=== PATIENT | female | born 1960 | race Two or more races ===

== ENCOUNTER → 2021-10-23 | Day surgery (SDC) | payer OTHER | END | disposition home or self-care (01) | LOC: JMAMMO-SUR 11:18 | PROVIDERS: ATTEND Internal Medicine Pulmonary Disease | PROC: 0H9U3ZX Drainage of Left Breast, Percutaneous Approach, Diagnostic (ICD-10-PCS; principal; 2021-10-23) | DX: D24.2 Benign neoplasm of left breast (principal); N60.92 Unspecified benign mammary dysplasia of left breast | CPT/HCPCS: 19083; 77065-TC; 88305-TC; 88341-TC; 88342-TC ==

== ENCOUNTER 2022-02-18 05:14 | Day surgery (SDC) | payer OTHER ==
[2022-02-14 11:26] VITALS: BMI 36.5
[2022-02-18] MEDS ORDERED: MIDAZOLAM HCL 2 MG/2 ML SINGLE DOSE VIAL ONE (09:14)
[2022-02-18] MEDS ORDERED: PROPOFOL 20 ML ONE (09:15)
[2022-02-18] MEDS ORDERED: LIDOCAINE HCL/PF 2% SDV 5ML VIAL ONE (09:15)
[2022-02-18] MEDS ORDERED: LIDOCAINE HCL 1%, 10 MG/ML (20ML VIAL) ONE (10:50)
[2022-02-18] MEDS ORDERED: LIDOCAINE HCL 1%, 10 MG/ML (20ML VIAL) NR ONE (11:25)
[2022-02-18] MEDS ORDERED: ceFAZolin SODIUM 1 GM VIAL ONE (11:34)
[2022-02-18] MEDS ORDERED: ceFAZolin SODIUM 1 GM VIAL IVPB ONE (11:35)
[2022-02-18] MEDS ORDERED: oxyCODONE HCL 5 MG TABLET PO PRN ×2 (12:01)
[2022-02-18] MEDS ORDERED: ONDANSETRON 4 MG/2 ML VIAL IVPUSH PRN (12:01)
[2022-02-18] MEDS ORDERED: LACTATED RINGERS SOLUTION 1,000 ML IV SCH (12:15)
[2022-02-18 13:38] VITALS: RESP 20
[2022-02-18 14:39] VITALS: BP 120/70; PULSE 68; TEMP 98
== END 2022-02-18 14:20 | disposition home or self-care (01) ==
LOC: JASU-SURG 05:14
PROVIDERS: ATTEND Surgery
PROC: 0HBU0ZZ Excision of Left Breast, Open Approach (ICD-10-PCS; principal; 2022-02-18 10:00)
DX: D24.2 Benign neoplasm of left breast (principal)
CPT/HCPCS: 88307-TC; 88341-TC; 88342-TC; 94760